=== PATIENT | female | born 1965 | race Caucasian/White ===

== ENCOUNTER 2017-03-14 15:19 | Emergency (ER) | payer OTHER ==
--- NOTE | 2017-03-14 18:11 | UC ---
Respiratory Complaint HPI - HPI Summary HPI Summary: 51 yo female with cough x 4 days has felt feverish and had chills hurts to cough no sob - History of Current Complaint Chief Complaint: UCGeneralIllness Stated Complaint: COUGH/CHEST CONGESTION Time Seen by Provider: 03/14/17 18:05 Hx Obtained From: Patient Hx Last Menstrual Period: Onset/Duration: Gradual Onset, Lasting Days Timing: Constant Severity Initially: Mild Severity Currently: Moderate Pain Intensity: 10 Pain Scale Used: 0-10 Numeric Character: Cough: Productive Aggravating Factors: Nothing Alleviating Factors: Nothing Associated Signs And Symptoms: Positive: Fever. Negative: Nasal Congestion, Hoarseness, Sinus Discomfort - Allergies/Home Medications Allergies/Adverse Reactions: Allergies Allergy/AdvReac Type Severity Reaction Status Date / Time Celecoxib [From Celebrex] Allergy Severe Rash Verified 03/14/17 16:31 Iodine Allergy Severe Rash And Verified 03/14/17 16:31 Itching Penicillins Allergy Severe Diarrhea Verified 03/14/17 16:31 Povidone Iodine Allergy Severe Itching Verified 03/14/17 16:31 [From Betadine] Tramadol [From Ultram] Allergy Severe Itching Verified 03/14/17 16:31 Adhesive Tape Allergy Rash And Verified 03/14/17 16:31 Itching Lisinopril Allergy Coughing Verified 03/14/17 16:33 Codeine AdvReac See Comment Verified 03/14/17 16:33 Morphine AdvReac Dizziness Verified 03/14/17 16:31 Prednisone AdvReac See Comment Verified 03/14/17 16:33 Home Medications: Home Medications Acetaminophen [Acetaminophen Extra Stren] 1,000 mg PO Q8H PRN 03/14/17 [History Confirmed 03/14/17] BuPROPion XL* [Bupropion XL*] 300 mg PO DAILY 03/14/17 [History Confirmed ] Bupropion HCl [Bupropion HCl Xl] 150 mg PO DAILY 03/14/17 [History Confirmed ] Ibuprofen [Ibuprofen 200] 400 mg PO Q6H PRN 03/14/17 [History Confirmed 03/14/17 ] PMH/Surg Hx/FS Hx/Imm Hx Previously Healthy: Yes - lupus Endocrine History: Dyslipidemia Cardiovascular History: Hypertension Respiratory History: Bronchitis Psychological History: Depression - Surgical History Surgical History: Yes Surgery Procedure, Year, and Place: [facility]. 1992 LEFT KNEE ARTHOSCOPY [facility]. 2011 LEFT BREAST BIOPSY W/ [facility]. 08/20/13 RIGHT WRIST TENDON [facility]. FATTY TISSUE REMOVED FROM UPPER RIGHT ARM - Social History Alcohol Use: None Alcohol Amount: Recovering alcoholic Substance Use Type: Prescribed Substance Use Comment - Amount & Last Used: hx prescribed drug, in outpatient treatment Smoking Status (MU): Current Every Day Smoker Type: Cigarettes Amount Used/How Often: 4-5 CIGS PER DAY Length of Time of Smoking/Using Tobacco: 3-4 YRS Have You Smoked in the Last Year: Yes When Did the Patient Quit Smoking/Using Tobacco: august 2014 Review of Systems Constitutional: Fever - gonzález, Chills, Fatigue Skin: Negative Eyes: Negative ENT: Negative Respiratory: Cough Cardiovascular: Chest Pain - with cough Gastrointestinal: Negative Genitourinary: Negative Motor: Negative Neurovascular: Negative Musculoskeletal: Edema Neurological: Negative Psychological: Negative Is Patient Immunocompromised?: No All Other Systems Reviewed And Are Negative: Yes Physical Exam Triage Information Reviewed: Yes Appearance: Well-Appearing, No Pain Distress, Well-Nourished Vital Signs: Initial Vital Signs Temp 97.9 F 03/14/17 16:20 Pulse 72 03/14/17 16:20 Resp 18 03/14/17 16:20 BP 136/84 03/14/17 16:20 Pulse Ox 96 03/14/17 16:20 Vital Signs Reviewed: Yes Eyes: Positive: Conjunctiva Clear ENT: Positive: Hearing grossly normal, TMs normal, Uvula midline. Negative: Pharyngeal erythema, Nasal congestion, Tonsillar swelling, Tonsillar exudate, Trismus, Muffled voice, Dental tenderness, Sinus tenderness Dental Exam: Normal Neck exam: Normal Neck: Positive: Supple, Nontender, No Lymphadenopathy Respiratory: Positive: Lungs clear, Normal breath sounds, No respiratory distress, No accessory muscle use Cardiovascular: Positive: No Murmur, Pulses Normal Musculoskeletal: Positive: ROM Intact, No Edema Neurological: Positive: Alert Psychological Exam: Normal Skin Exam: Normal UC Diagnostic Evaluation - Laboratory O2 Sat by Pulse Oximetry: 96 - normal/not hypoxic - Radiology Xray Interpretation: No Acute Changes Radiology Interpretation Completed By: ED Physician Respiratory Course/Dx - Differential Dx/Diagnosis Provider Diagnoses: acute bronchitis Discharge - Discharge Plan Condition: Stable Disposition: HOME Prescriptions: DOXYcycline CAP(*) [DOXYcycline 100MG CAP(*)] 100 mg PO BID #14 cap Patient Education Materials: Acute Bronchitis (ED) Referrals: JACQUELINE Roman [Primary Care Provider] - 4 Days Additional Instructions: rest fluids plain robitussin or mucinex recheck for new or worsening symptoms recheck in 4 days if not better
[2017-03-14 18:45] VITALS: BP 138/85
--- NOTE | 2017-03-14 19:41 | RAD ---
INDICATION: Fever and cough x4 days COMPARISON: None TECHNIQUE: PA and lateral views of the chest were obtained. FINDINGS: The heart and mediastinum are normal in size and contour. The lungs are grossly clear. There is no evidence of large pleural effusion. Visualized bones are normal for the patient's age. There is no radiographic evidence of free air beneath the diaphragm IMPRESSION: No radiographic evidence of acute cardiopulmonary disease.
== END 2017-03-14 18:47 | disposition home or self-care (01) ==
LOC: UCCORT 15:19
DX: J20.9 Acute bronchitis, unspecified (principal); Z87.891 Personal history of nicotine dependence; F10.21 Alcohol dependence, in remission
CPT/HCPCS: 71046; 99212; G0463

== ENCOUNTER 2018-04-06 20:42 | Emergency (ER) | payer MEDICARE, OTHER ==
--- OUTSIDE RECORDS SUMMARY | 2018-04-06 20:53 | XMS REPORT | Continuity of Care Document ---
:1965 External Reference #:[id number] Author Name Paris Aguilar Care Team Providers Name Role Phone Eddie Velarde M.D. Care Team Information Senior Energy Market Coordinator Unavailable Eddie Velarde M.D. Primary Care Physician Unavailable Payers Type Date Identification Numbers Payment Provider Subscriber Expires: Policy Number: [id number] [facility] Vikki Lucero 2018 Medicare PayID: [id number] [address] [address] [place] [address] Effective: 2018 Policy Number: [id number] [employer] Vikki Lucero PayID: [id number] [address] [place] [address] Advance Directives Description No Information Available Problems Date Description Provider Status Onset: 05/24/2017 Other fecal abnormalities Zhang Hobson MD Active Onset: 05/24/2017 Diverticular disease of colon Zhang Hobson MD Active Onset: 09/28/2013 Carpal tunnel syndrome Margaret Batista MD Active Onset: 09/28/2013 Pain in limb Margaret Batista MD Active Onset: 01/22/2013 Pain of breast Kulwant Jennings MD Active Onset: 01/22/2013 Breast signs and symptoms Kulwant Jennings MD Active Family History Date Family Member(s) Problem(s) Comments General Hypertension mother, dad, sister, brother General Fibromyalgia sister General Bipolar Disorder brother, sister General Anxiety mother General High Cholesterol brother General Non Contributory : (age 70 Father due to Unknown Years) Causes Father Hypertension : (age 70 Mother due to Unknown Years) Causes Mother Hypertension Mother Anxiety First Brother Hypertension First Brother High Cholesterol First Brother Bipolar Disorder First Sister Hypertension First Sister Cancer First Sister Fibromyalgia First Sister Bipolar Disorder Social History Type Date Description Comments Sex Unknown Marital Status Single Lives With Alone Home Environment Lives Alone Diet Patient follows no dietary restrictions Occupation Disabled 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 Work Status Not Currently Working Tobacco Use Start: Unknown Never Smoked Cigarettes Smokeless Tobacco Never Used Smokeless Tobacco ETOH Use Denies alcohol use recovering alcoholic Tobacco Use Start: Unknown Patient is a current smoker, smokes every day Recreational Drug Use Denies Drug Use Tobacco Use Start: Unknown Light tobacco smoker (10 or fewer cigarettes/day) Smoking Status Reviewed: 03/17/18 Light tobacco smoker (10 or fewer cigarettes/day) Allergies, Adverse Reactions, Alerts Date Description Reaction Status Severity Comments 01/09/2013 Penicillin Active 01/09/2013 Celebrex Active 01/09/2013 Morphine Active 05/14/2016 Betadine Active 05/14/2016 Adhesives Active 05/17/2016 Iodine Active 02/02/2018 Benlysta Active 02/02/2018 Prednisone Active 03/17/2018 Lisinopril Active Medications Medication Date Status Form Strength Qnty SIG Indications Ordering Provider Bisacodyl Ec 04/[address] 5mg 4tabs take 4 R19.5 Jazlyn tablets by , Zhang, mouth at MD 8pm day before procedure Citrate Of 04/19 Active Solution 1.745GM/3 296ml 1 bottle R19.5 Jazlyn 0ML at 1pm day , Zhang, before MD procedure Aspirin Active Tablets 81mg 90tab 1 po qd Unknown /0000 s Gabapentin Active Capsules 400mg 1 tab po Unknown /0000 tid Omeprazole Active Capsules DR 40mg 30cap 1 by mouth Unknown /0000 s every day Trazodone HCL Active Tablets 100mg 1 tablets Unknown /0000 by mouth as needed for sleep Duloxetine HCL Active Caps DR 30mg 1 cap po Unknown /0000 Part in morning Hydrochlorothiazi 00 Active Capsules 12.5mg 1 by mouth Unknown de every day Atorvastatin 00 Active Tablets 20mg 1 by mouth Unknown Calcium / every day Fluticasone Active Suspension 50mcg/Act 1 spray to Unknown each nare every day Acidophilus Active Capsules 1 by mouth Unknown /0000 daily x 10 days Buspirone HCL Active Tablets 15mg 1 tab by Unknown /0000 mouth in the morning and 1 tab at noon Bupropion HCL ER Active Tablets ER 150mg 1 by mouth Unknown (SR) / 12HR po qd Bupropion HCL ER Active Tablets ER 300mg 1 by mouth Unknown (XL) / 24HR every day Azathioprine Active Tablets 50mg 4 tabs by Unknown /0000 mouth once daily Metaxalone Active Tablets 800mg Unknown / Sumatriptan Active Tablets 25mg one by Unknown Succinate /0000 mouth at the first sign of headache, may repeat dose in 2 hours if needed. mdd [address] 60mg 1 by mouth Unknown / Part every day Buspirone HCL Active Tablets 30mg Pt takes Unknown 20 mg at bedtime Meloxicam Active Tablets 7.5mg Take One Unknown Tablet By Mouth Every Day Take With Food Lisinopril 03/17 Hx Tablets 2.5mg 90tab 1 by mouth Amara, /2019 s every day Shai Clement M.D. 03/17 Moviprep 04/19 Hx Solution 100gm 1unit as R19.5 Jazlyn /2017 Rec s Zhang fregoso MD Flexeril Hx Tablets 10mg 30tab 1 po bid Unknown / s - 02/02 Lisinopril/Hydroc Hx Tablets 10-12.5mg 30tab 1 po qd Unknown hlorothiazide / s Pravastatin Hx Tablets 10mg 30tab 1 po qd Unknown Sodium / s Ranitidine HCL Hx Capsules 150mg 60cap 1 po bid Unknown / s - 02/02 Clonidine HCL Hx Tablets 0.1mg 30tab 1 po bid Unknown / s - 09/28 Nasonex Hx Suspension 50mcg/Act 1 Unknown / intranasal - qd 09/28 Nucynta Hx Tablets 50mg Unknown /0000 - 02/02 Clindamycin HCL Hx Capsules 300mg 6caps 2 tab po 1 Unknown /0000 hr prior to procedure Trazamine Hx Misc 100mg Unknown /0000 - 09/28 Black Cohosh Hx Capsules Unknown /0000 Potassium Hx Tablets Unknown Gluconate /0000 Complete Hx 1 tab am Unknown Multivitamin /0000 - 02/02 Fluticasone Hx [place] Unknown Propionate /0000 - 09/28 Cephalexin Hx Tablets 500mg 20tab 2 po bid Unknown / s pc - 09/28 Losartan Hx Tablets 50-12.5mg 90tab 1 po qd Unknown Potassium/Hydroch /0000 s lorothiazide Potassium Hx Tablets 595mg Unknown Gluconate / Amrix Hx Caps ER 15mg Unknown / 24HR Diclofenac Sodium Hx Tablets DR 50mg Unknown DR / Tylenol PM Extra Hx Tablets 500-25mg Unknown Strength / Crestor Hx Tablets 20mg Unknown / Sertraline HCL Hx Tablets 50mg Unknown Propranolol HCL Hx Tablets 10mg 1 tab po Unknown / bid - 02/02 Tylenol Hx Capsules 325mg 2 tab by / mouth - three 02/02 times day as needed Ibuprofen Hx Capsules 200mg as needed - 02/02 Immunizations Description No Information Available Vital Signs Date Vital Result Comment 03/17/2018 1:12pm BP Systolic 130 mmHg BP Diastolic 86 mmHg Body Temperature 97.8 F Heart Rate 84 /min Respiratory Rate 18 /min Weight 225.12 lb O2 % BldC Oximetry 96 % Pain Level 10 groin and bladder pain 02/02/2018 3:14pm BP Systolic 146 mmHg BP Diastolic 93 mmHg Body Temperature 98.1 F Heart Rate 73 /min Respiratory Rate 16 /min Height 63.75 inches 5'3.75" Weight 230.00 lb BMI (Body Mass Index) 39.8 kg/m2 BSA (Body Surface Area) 2.07 m2 [place] body weight in kilograms 54 kg O2 % BldC Oximetry 94 % Pain Level 9 Right side of groin 05/24/2017 1:37pm BP Systolic Sitting Right Arm 144 mmHg BP Diastolic Sitting Right Arm 97 mmHg Heart Rate 69 /min Respiratory Rate 18 /min Height 63.75 inches 5'3.75" Weight 236.00 lb BMI (Body Mass Index) 40.8 kg/m2 BSA (Body Surface Area) 2.09 m2 [place] body weight in kilograms 54 kg 04/19/2017 2:04pm BP Systolic Sitting Left Arm 132 mmHg BP Diastolic Sitting Left Arm 84 mmHg Heart Rate 66 /min Respiratory Rate 16 /min Height 63.75 inches 5'3.75" Weight 242.00 lb BMI (Body Mass Index) 41.9 kg/m2 BSA (Body Surface Area) 2.11 m2 [place] body weight in kilograms 54 kg 05/14/2016 11:16am BP Systolic Sitting Left Arm 109 mmHg BP Diastolic Sitting Left Arm 77 mmHg Heart Rate 62 /min Height 63.75 inches 5'3.75" Weight 265.00 lb BMI (Body Mass Index) 45.8 kg/m2 BSA (Body Surface Area) 2.20 m2 [place] body weight in kilograms 54 kg 09/28/2013 10:10am BP Systolic Sitting Left Arm 134 mmHg BP Diastolic Sitting Left Arm 88 mmHg Height 64.5 inches 5'4.50" Weight 231.00 lb BMI (Body Mass Index) 39.0 kg/m2 BSA (Body Surface Area) 2.09 m2 01/22/2013 10:15am BP Systolic Sitting Left Arm 120 mmHg BP Diastolic Sitting Left Arm 68 mmHg Heart Rate 90 /min Height 64 inches 5'4" Weight 205.00 lb BMI (Body Mass Index) 35.2 kg/m2 BSA (Body Surface Area) 1.98 m2 Results Test Date Facility Test Result H/L Range Note Urine Culture 02/02/2018 [facility] Urine Culture URETHRAL IMAN [address] [place] [address] [phone] Quantity 10,000 - 50,000 <SEE NOTE> 2 Laboratory test finding 02/15/2015 [facility] CK 87 U/L 26-192 [address] [place] [address] [phone] Treponema Antibody Schuyler Nonreactive Nonreactive 3 Basic Metabolic Panel 02/15/2015 [facility] Glucose 96 mg/dL 74-106 [address] [place] [address] [phone] BUN 10 mg/dL 7-18 Creatinine 0.5 mg/dL Low 0.6-1.3 Glom Filtration Rate, Estimate >60 mL/min >60 If >60 mL/min >60 4 BUN/Creat 20.0 ratio Sodium 142 mmol/L 136-145 Potassium 3.2 mmol/L Low 3.5-5.1 Chloride 109 mmol/L High 98-107 Carbon Dioxide 26 mmol/L 21-32 Anion Gap 7 mEq/L Low 8-16 Calcium 8.0 mg/dL Low 8.5-10.1 Laboratory test finding 02/15/2015 [facility] HCG, Quant 2.0 mIU/mL 5 [address] [place] [address] [phone] C-Reactive Protein,Quant 254.0 mg/L High <3.0 CBC 02/15/2015 [facility] White Blood Count 14.3 K/uL High 3.1-10.7 [address] [place] [address] [phone] Red Blood Count 3.59 M/uL Low 3.90-5.40 Hemoglobin 10.5 gm/dL Low 11.6-15.8 Hematocrit 32.8 % Low 36.0-46.1 Mean Cell Volume 91.4 fl 80.9-99.0 Mean Corpuscular HGB 29.2 pg 25.9-32.7 Mean Corpuscular HGB Conc 32.0 g/dL 30.8-34.3 Platelet Count 257 K/uL 155-360 Red Cell Distri Width %CV 12.8 % 11.7-14.4 Mean Platelet Volume 10.1 fL 8.9-12.4 Laboratory test 02/14/2015 [facility] Dm MT. Negative Negative 6 finding [address] [facility] [place] [address] IgG [phone] Antibody Detection See Note 7 Drugs Of 02/14/2015 [facility] Amphetamines (Urine) Negative Abuse-Urine Screen [address] [facility] [address] [place], [place] [id number] [phone] Barbiturates (Urine) Negative Benzodiazepines (Urine) Negative Cannabinoids (Urine) Negative Cocaine Metabolite (Urine) Negative Methadone (Urine) Negative Opiates (Urine) POSITIVE High Urine Cutoffs * 8 CSF Cell Count/Diff 02/14/2015 [facility] Color COLORLESS [address] [place], [place] [id number] [phone] Appearance CLEAR CSF WBC 1 /mm3 0-5 CSF RBC 4 /mm3 High -0 CSF Polys 1 % 0-6 CSF Lymphs 92 % High 40-60 CSF Monos 7 % Low 15-45 CSF Culture With Gram Stain 02/14/2015 [facility] Gram Stain See Note 9 [address] [place] [address] [phone] CSF Culture See Note 10 Laboratory test 02/14/2015 [facility] CSF Total 25.4 mg/dL 15.0-45.[address] [place] [address] [phone] VDRL,CSF Non Reactive NonRea:<1:1 11 1 N39.3 2 10,000 - 50,000 CFU/mL 3 Please Note: A nonreactive test result does not exclude the possibility of exposure to, or infection with syphilis. T. pallidum antibodies may be undetectable in some stages of the infection and in some clinical conditions. 4 Note: Persistent reduction for 3 months or more in an eGFR <60 mL/min/1.73 m2 defines CKD. Patients with eGFR values >/=60 mL/min/1.73 m2 may also have CKD if evidence of persistent proteinuria is present. The original MDRD equation for estimated GFR is not valid for patients less than 18 years of age. Additional information may be found at www.kdoqi.org. 5 Approximate Gestational Age and Total BHCG Range: 0.2 - 1 Week........................5-50 mIU/mL 1 - 2 Weeks.....................50-500 mIU/mL 2 - 3 Weeks..................100-5,000 mIU/mL 3 - 4 Weeks.................500-10,000 mIU/mL 4 - 5 Weeks...............1,000-50,000 mIU/mL 5 - 6 Weeks.............10,000-100,000 mIU/mL 6 - 8 Weeks.............15,000-200,000 mIU/mL 2 - 3 Months............10,000-100,000 mIU/mL 6 Performed at: [address] [id number] [employer] Mechanic: Uli Lopez MD, Phone: [phone] 7 No reportable results 8 URINE SPECIMENS ARE SCREENED AT THE LISTED CUTOFFS DRUG CLASS INITIAL TEST LEVEL Amphetamines 1000 ng/mL Barbiturates 200 ng/mL Benzodiazepines 200 ng/mL Cannabinoids 50 ng/mL Cocaine Metabolite 300 ng/mL Methadone 300 ng/mL Opiates 300 ng/mL Any POSITIVE findings are UNCONFIRMED. Confirmatory testing is suggested if findings are unexpected. Please contact laboratory if confirmatory testing is desired. SPECIMENS ARE HELD FOR 72 HOURS. 9 GRAM STAIN ! NO ORGANISMS SEEN BY CYTOSPIN SMEAR ! FEW WHITE BLOOD CELLS 10 NO GROWTH: FINAL REPORT 11 Performed at: [address] [id number] [employer] Mechanic: Uli Lopez MD, Phone: [phone] Procedures Date Code Description Status 03/17/2018 46721 complex uroflowmetry electronic Completed 03/15/2018 57509 Endoscopic Injection Implant Material Urethra/Bladder Completed Neck 05/09/2017 63807 Colonoscopy With Biopsy Completed 05/14/2016 44778 Radiology, Ankle Complete Completed 05/14/2016 64836 Radiology, Ankle Complete Completed 02/14/2015 93716 Echocardiogram Complete Completed 01/15/2013 [id number] Mammogram Completed 12/03/2011 [id number] Mammogram Completed 08/10/2008 69362 Rep Complex Forehead,Cheeks,Chin,Mouth, Neck 1.1 To 2.5 Completed CM 08/10/2008 49915 Rep Complex Forehead,Cheeks,Chin,Mouth, Neck 1.1 To 2.5 Completed CM 06/29/2007 [id number] Mammogram Completed Encounters Type Date Location Provider Dx Diagnosis Office Visit 03/17/2018 Urology Kalyan Stiles, 1:30p PA Office Visit 02/02/2018 Urology Urbano Maloney, N39.3 Stress incontinence 3:00p M.D. (female) (male) N39.41 Urge incontinence Office Visit 05/24/2017 1:30p Zhang Nunn MD K57.30 Dvrtclos of lg int w/o perforation or abscess w/o bleeding R19.5 Other fecal abnormalities Office Visit 04/19/2017 MJ Hobson R19.5 Other fecal 1:45p MD Zhang abnormalities Office Visit 05/14/2016 Orthopaedic Alix Cunningham M25.572 Pain in left ankle 11:00a Office S., RPAC and joints of left foot S93.422A Sprain of deltoid ligament of left ankle, initial encounter Office Visit 02/13/2015 10:32a [facility] Bre, L03.319 Cellulitis of [facility] Melvin Bello trunk, unspecified Office Visit 09/28/2013 10:00a Orthopaedic Margaert Batista, 729.5 Pain In Limb Office 354.0 Carpal Tunnel Syndrome Office Visit 01/22/2013 10:00a Surgical Office Kulwant Jennings, 611.79 Breast Signs & MD Symptoms Other 611.71 Mastodynia Plan of Treatment Future Appointment(s):05/15/2018 10:15 am - Kalyan Stiles PA at [email or web address] 10:45 am - Urbano Maloney M.D. at Urology
--- OUTSIDE RECORDS SUMMARY | 2018-04-06 20:53 | XMS REPORT | Continuity of Care Document ---
:1965 External Reference #:[id number] Author Name Urbano Maloney M.D. Address [address] [facility] [address] [place] [address] Care Team Providers Name Role Phone Eddie Velarde M.D. 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 Primary Care Physician Unavailable Payers Type Date Identification Numbers Payment Provider Subscriber Expires: Policy Number: [id number] [facility] Vikki Lucero 2018 Medicare PayID: [id number] [address] [address] [place] [address] Effective: 2018 Policy Number: [id number] [employer] Vikki Lucero PayID: [id number] [address] [place] [address] Advance Directives Description No Information Available Problems Date Description Provider Status Onset: 03/30/2018 Female stress incontinence Urbano Maloney M.D. Active Onset: 05/24/2017 Other fecal abnormalities Zhang Hobson [...] (10 or fewer cigarettes/day) Smoking Status Reviewed: 03/29/18 Light tobacco smoker (10 or fewer cigarettes/day) [...] take 4 R19.5 Jazlyn tablets by , Zhang mouth at MD 8pm day before procedure Citrate Of 04/19 Active Solution 1.745GM/3 296ml 1 bottle R19.5 Jazlyn 0ML at 1pm day , Zhang, before MD procedure Aspirin Active Tablets 81mg 90tab 1 po qd Unknown / s Gabapentin 00 Active Capsules 400mg 1 tab po tid Omeprazole Active Capsules DR 40mg 30cap 1 by mouth s every day Trazodone HCL Active Tablets 100mg 1 tablets by mouth as needed for sleep Duloxetine HCL Active Caps DR 30mg 1 cap po Part in morning Hydrochlorothiazi Active Capsules 12.5mg 1 by mouth Unknown de /0000 every day Atorvastatin Active Tablets 20mg 1 by mouth Unknown Calcium /0000 every day Fluticasone Active Suspension 50mcg/Act 1 spray to Unknown Propionate 0000 each nare every day Acidophilus Active Capsules 1 by mouth Unknown /0000 daily x 10 days Buspirone HCL Active Tablets 15mg 1 tab by Unknown /0000 mouth in the morning and 1 tab at noon Bupropion HCL ER Active Tablets ER 150mg 1 by mouth Unknown (SR) / 12HR po qd Bupropion HCL ER Active Tablets ER 300mg 1 by mouth Unknown (XL) /0000 24HR every day Azathioprine Active Tablets 50mg 4 tabs by Unknown /0000 mouth once daily Metaxalone Active Tablets 800mg Unknown / Sumatriptan Active Tablets 25mg one by Unknown Succinate / mouth at the first sign of headache, may repeat dose in 2 hours if needed. mdd [address] 60mg 1 by mouth Unknown / Part every day Buspirone HCL Active Tablets 30mg Pt takes Unknown 20 mg at bedtime Meloxicam Active Tablets 7.5mg Take One Tablet By Mouth Every Day Take With Food Lisinopril 03/17 Hx Tablets 2.5mg 90tab 1 by mouth Amara, s every day Shai Clement M.D. 03/17 Moviprep 04/19 Hx Solution 100gm 1unit as R19.5 /2017 Rec s Zhang rfegoso MD Flexeril Hx Tablets 10mg 30tab 1 po bid Unknown / s - 02/02 Lisinopril/Hydroc Hx Tablets 10-12.5mg 30tab 1 po qd Unknown hlorothiazide s Pravastatin Hx Tablets 10mg 30tab 1 po qd Unknown Sodium s Ranitidine HCL Hx Capsules 150mg 60cap 1 po bid Unknown s - 02/02 Clonidine HCL Hx Tablets 0.1mg 30tab 1 po bid Unknown / s - 09/28 Nasonex Hx Suspension 50mcg/Act 1 Unknown / intranasal - qd 09/28 Nucynta Hx Tablets 50mg Unknown / - 02/02 Clindamycin HCL Hx Capsules 300mg 6caps 2 tab po 1 Unknown / hr prior to procedure Trazamine Hx Misc 100mg Unknown / - 09/28 Black Cohosh Hx Capsules Unknown /0000 Potassium Hx Tablets Unknown Gluconate /0000 Complete Hx 1 tab am Unknown Multivitamin / - 02/02 Fluticasone Hx [place] Unknown Propionate / - 09/28 Cephalexin Hx Tablets 500mg 20tab 2 po bid Unknown / s pc - 09/28 Losartan Hx Tablets 50-12.5mg 90tab 1 po qd Unknown Potassium/Hydroch / s lorothiazide Potassium Hx Tablets 595mg Unknown Gluconate Amrix Hx Caps ER 15mg Unknown 24HR Diclofenac Sodium Hx Tablets DR 50mg Unknown DR / Tylenol PM Extra Hx Tablets 500-25mg Unknown Strength /0000 Crestor Hx Tablets 20mg Unknown / Sertraline HCL Hx Tablets 50mg Unknown / Propranolol HCL Hx Tablets 10mg 1 tab po Unknown / bid - 02/02 Tylenol Hx Capsules 325mg 2 tab by Unknown / mouth - three 02/02 times per day as needed Ibuprofen Hx Capsules 200mg as needed / - 02/02 Immunizations Description No Information Available Vital Signs Date Vital Result Comment 03/30/2018 10:15am BP Systolic 147 mmHg BP Diastolic 88 mmHg Body Temperature 98.0 F Heart Rate 71 /min Respiratory Rate 16 /min O2 % BldC Oximetry 97 % Pain Level 10 left knee, lupus,fibromyalgia 03/17/2018 1:12pm BP Systolic 130 mmHg BP [...] kg/m2 BSA (Body Surface Area) 2.07 m2 [place] body weight in kilograms 54 kg O2 % BldC Oximetry 94 % Pain Level 9 Right side of groin 05/24/2017 1:37pm BP Systolic Sitting Right Arm 144 mmHg BP Diastolic Sitting Right Arm 97 mmHg Heart Rate 69 /min Respiratory Rate 18 /min Height 63.75 inches 5'3.75" Weight 236.00 lb BMI (Body Mass Index) 40.8 kg/m2 BSA (Body Surface Area) 2.09 m2 [place] body weight in kilograms 54 kg 04/19/2017 2:04pm BP Systolic Sitting Left Arm 132 mmHg BP Diastolic Sitting Left Arm 84 mmHg Heart Rate 66 /min Respiratory Rate 16 /min Height 63.75 inches 5'3.75" Weight 242.00 lb BMI (Body Mass Index) 41.9 kg/m2 BSA (Body Surface Area) 2.11 m2 [place] body weight in kilograms 54 kg 05/14/2016 11:16am BP Systolic Sitting Left Arm 109 mmHg BP Diastolic Sitting Left Arm 77 mmHg Heart Rate 62 /min Height 63.75 inches 5'3.75" Weight 265.00 lb BMI (Body Mass Index) 45.8 kg/m2 BSA (Body Surface Area) 2.20 m2 [place] body weight in kilograms 54 kg 09/28/2013 [...] Result H/L Range Note Urine Culture 02/02/2018 [facility] Urine Culture URETHRAL IMAN [address] [place] [address] [phone] Quantity 10,000 - 50,000 <SEE NOTE> 2 Laboratory test finding 02/15/2015 [facility] CK 87 U/L 26-192 [address] [place], [place] [address] [phone] Treponema Antibody [place] Nonreactive Nonreactive 3 Basic Metabolic Panel 02/15/2015 [facility] Glucose 96 mg/dL 74-106 [address] [place] [address] [phone] BUN 10 mg/dL 7-18 Creatinine 0.5 mg/dL Low 0.6-1.3 Glom Filtration Rate, Estimate >60 mL/min >60 If >60 mL/min >60 4 BUN/Creat 20.0 ratio Sodium 142 mmol/L 136-145 Potassium 3.2 mmol/L Low 3.5-5.1 Chloride 109 mmol/L High 98-107 Carbon Dioxide 26 mmol/L 21-32 Anion Gap 7 mEq/L Low 8-16 Calcium 8.0 mg/dL Low 8.5-10.1 Laboratory test finding 02/15/2015 [facility] HCG, Quant 2.0 mIU/mL 5 [address] [place], [place] [address] [phone] C-Reactive Protein,Quant 254.0 mg/L High <3.0 CBC 02/15/2015 [facility] White Blood Count 14.3 K/uL High 3.1-10.7 [address] [place], [place] [address] [phone] Red Blood Count 3.59 M/uL Low 3.90-5.40 Hemoglobin 10.5 gm/dL Low 11.6-15.8 Hematocrit 32.8 % Low 36.0-46.1 Mean Cell Volume 91.4 fl 80.9-99.0 Mean Corpuscular HGB 29.2 pg 25.9-32.7 Mean Corpuscular HGB Conc 32.0 g/dL 30.8-34.3 Platelet Count 257 K/uL 155-360 Red Cell Distri Width %CV 12.8 % 11.7-14.4 Mean Platelet Volume 10.1 fL 8.9-12.4 Laboratory test 02/14/2015 [facility] Dm MT. Negative Negative 6 finding 134 [facility] [place] [address] IgG [phone] Antibody Detection See Note 7 Drugs Of 02/14/2015 [facility] Amphetamines (Urine) Negative Abuse-Urine Screen [address] [facility] [address] [place] [address] [phone] Barbiturates (Urine) Negative Benzodiazepines (Urine) Negative Cannabinoids (Urine) Negative Cocaine Metabolite (Urine) Negative Methadone (Urine) Negative Opiates (Urine) POSITIVE High Urine Cutoffs * 8 CSF Cell Count/Diff 02/14/2015 [facility] Color COLORLESS [address] [place], [place] [address] [phone] Appearance CLEAR CSF WBC 1 /mm3 0-5 CSF RBC 4 /mm3 High -0 CSF Polys 1 % 0-6 CSF Lymphs 92 % High 40-60 CSF Monos 7 % Low 15-45 CSF Culture With Gram Stain 02/14/2015 [facility] Gram Stain See Note 9 [address] [place] [address] [phone] CSF Culture See Note 10 Laboratory test 02/14/2015 [facility] CSF Total 25.4 mg/dL 15.0-45.0 finding [address] [place] [address] [phone] VDRL,CSF Non Reactive NonRea:<1:1 11 1 N39.3 [...] - 3 Months............10,000-100,000 mIU/mL 6 Performed at: [address] [id number] Global Climate Change Researcher: Uli Lopez MD, Phone: [phone] No reportable results 8 URINE SPECIMENS [...] NO GROWTH: FINAL REPORT 11 Performed at: [address] [id number] Global Climate Change Researcher: Uli Lopez MD, Phone: [phone] Procedures Date Code Description Status 03/17/2018 72099 Measurement Post Voiding Residual Urine By Completed Ultrasound,Non-Imaging 03/17/2018 10804 complex uroflowmetry electronic Completed 03/15/2018 31319 Endoscopic Injection Implant Material Urethra/Bladder Completed Neck 05/09/2017 52815 Colonoscopy With Biopsy Completed 05/14/2016 96952 Radiology, Ankle Complete Completed 05/14/2016 13189 Radiology, Ankle Complete Completed 02/14/2015 84284 Echocardiogram Complete Completed 01/15/2013 [id number] Mammogram Completed 12/03/2011 73300120 Mammogram Completed 08/10/2008 97274 Rep Complex Forehead,Cheeks,Chin,Mouth, Neck 1.1 To 2.5 Completed CM 08/10/2008 44310 Rep Complex Forehead,Cheeks,Chin,Mouth, Neck 1.1 To 2.5 Completed CM 06/29/2007 [id number] Mammogram Completed Encounters Type Date Location Provider Dx Diagnosis Office Visit 03/17/2018 Urology Kalyan Stiles, N39.3 Stress incontinence 1:30p PA (female) (male) Office Visit 02/02/2018 Urology Urbano Maloney, N39.3 [...] ankle, initial encounter Office Visit 02/13/2015 10:32a [facility] Bre, L03.319 Cellulitis of [facility] Melvin Bello trunk, unspecified Office Visit 09/28/2013 10:00a Orthopaedic Margaret Batista, 729.5 Pain In Limb Office 354.0 Carpal Tunnel Syndrome Office Visit 01/22/2013 10:00a Surgical Office Kulwant Jennings, 611.79 Breast Signs & MD Symptoms Other 611.71 Mastodynia Plan of Treatment Future Appointment(s):07/04/2018 10:45 am - Urbano Maloney M.D. at [email or web address] 10:15 am - Kalyan Stiles, PA at Urology
--- OUTSIDE RECORDS SUMMARY | 2018-04-06 20:54 | XMS REPORT | Continuity of Care Document ---
:1965 External Reference #:[id number] Author Name Urbano Maloney M.D. Address [address] [facility] [address] [place] [address] Care Team Providers Name Role Phone Eddie Velarde M.D. 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 Primary Care Physician Unavailable Payers Type Date Identification Numbers Payment Provider Subscriber Expires: Policy Number: [id number] [facility] Vikki Lucero 2018 Medicare PayID: [id number] [address] [address] [place] [address] Effective: 2018 Policy Number: [id number] [employer] Vikki Lucero PayID: [id number] [address] [place] [address] Advance Directives Description No Information Available Problems [...] Tablets DR 5mg 4tabs take 4 R19.5 tablets by , Zhang, mouth at MD 8pm day before procedure Citrate Of 04/19 Active Solution 1.745GM/3 296ml 1 bottle R19.5 Jazlyn 0ML at 1pm day Zhang, before MD procedure Aspirin 00 Active Tablets 81mg 90tab 1 po qd Unknown /0000 s Gabapentin 00 Active Capsules 400mg 1 tab po Unknown /0000 tid Omeprazole [address] 40mg 30cap 1 by [...] Acidophilus Active Capsules 1 by mouth Unknown / daily x 10 days Buspirone HCL Active [...] Buspirone HCL Active Tablets 30mg Pt takes 20 mg at bedtime Meloxicam Active Tablets 7.5mg Take One Unknown Tablet By Mouth Every Day Take With Food Lisinopril 03/17 Hx Tablets 2.5mg 90tab 1 by mouth Amara, /2018 s every day Shai Clement M.D. 03/17 Moviprep 04/19 Hx Solution 100gm 1unit as R19.5 [facility] Rec s Zhang fregoso MD Flexeril Hx [...] - 09/28 Black Cohosh Hx Capsules Unknown / Potassium Hx Tablets Unknown Gluconate /0000 Complete Hx 1 tab am Unknown Multivitamin /0000 - 02/02 Fluticasone Hx [place] Unknown Propionate /0000 - 09/28 Cephalexin Hx Tablets 500mg 20tab 2 po bid Unknown s pc - 09/28 Losartan Hx Tablets 50-12.5mg 90tab 1 po qd Unknown Potassium/Hydroch / s lorothiazide Potassium Hx Tablets 595mg Unknown Gluconate Amrix Hx Caps ER 15mg 24HR Diclofenac Sodium Hx Tablets DR 50mg Unknown DR / Tylenol PM Extra Hx Tablets 500-25mg Unknown Strength / Crestor Hx Tablets 20mg Unknown Sertraline HCL Hx Tablets 50mg Unknown Propranolol HCL Hx Tablets 10mg 1 tab po Unknown / bid - 02/02 Tylenol Hx Capsules 325mg 2 tab by mouth - three 02/02 times day as [...] kg/m2 BSA (Body Surface Area) 2.07 m2 [place] body weight in kilograms 54 kg O2 % BldC Oximetry 94 % Pain Level 9 Right side of groin 05/24/2017 1:37pm BP Systolic Sitting Right Arm 144 mmHg BP Diastolic Sitting Right Arm 97 mmHg Heart Rate 69 /min Respiratory Rate 18 /min Height 63.75 inches 5'3.75" Weight 236.00 lb BMI (Body Mass Index) 40.8 kg/m2 BSA (Body Surface Area) 2.09 m2 [place] body weight in kilograms 54 kg 04/19/2017 2:04pm BP Systolic Sitting Left Arm 132 mmHg BP Diastolic Sitting Left Arm 84 mmHg Heart Rate 66 /min Respiratory Rate 16 /min Height 63.75 inches 5'3.75" Weight 242.00 lb BMI (Body Mass Index) 41.9 kg/m2 BSA (Body Surface Area) 2.11 m2 [place] body weight in kilograms 54 kg 05/14/2016 11:16am BP Systolic Sitting Left Arm 109 mmHg BP Diastolic Sitting Left Arm 77 mmHg Heart Rate 62 /min Height 63.75 inches 5'3.75" Weight 265.00 lb BMI (Body Mass Index) 45.8 kg/m2 BSA (Body Surface Area) 2.20 m2 [place] body weight in kilograms 54 kg 09/28/2013 [...] Result H/L Range Note Urine Culture 02/02/2018 [facility] Urine Culture URETHRAL IMAN 1 [address] [place] [address] [phone] Quantity 10,000 - 50,000 <SEE NOTE> 2 Laboratory test finding 02/15/2015 [facility] CK 87 U/L 26-192 [address] [place] [address] [phone] Treponema Antibody [place] Nonreactive Nonreactive 3 Basic Metabolic Panel 02/15/2015 [facility] Glucose 96 mg/dL 74-106 [address] [place] [address] [phone] BUN 10 mg/dL 7-18 Creatinine 0.5 mg/dL Low 0.6-1.3 Glom Filtration Rate, Estimate >60 mL/min >60 If >60 mL/min >60 4 BUN/Creat 20.0 ratio Sodium 142 mmol/L 136-145 Potassium 3.2 mmol/L Low 3.5-5.1 Chloride 109 mmol/L High 98-107 Carbon Dioxide 26 mmol/L 21-32 Anion Gap 7 mEq/L Low 8-16 Calcium 8.0 mg/dL Low 8.5-10.1 Laboratory test finding 02/15/2015 [facility] HCG, Quant 2.0 mIU/mL 5 [address] [place] [address] [phone] C-Reactive Protein,Quant 254.0 mg/L High <3.0 CBC 02/15/2015 [facility] White Blood Count 14.3 K/uL High 3.1-10.7 [address] [place], [place] [id number] [phone] Red Blood Count 3.59 M/uL Low 3.90-5.40 Hemoglobin 10.5 gm/dL Low 11.6-15.8 Hematocrit 32.8 % Low 36.0-46.1 Mean Cell Volume 91.4 fl 80.9-99.0 Mean Corpuscular HGB 29.2 pg 25.9-32.7 Mean Corpuscular HGB Conc 32.0 g/dL 30.8-34.3 Platelet Count 257 K/uL 155-360 Red Cell Distri Width %CV 12.8 % 11.7-14.4 Mean Platelet Volume 10.1 fL 8.9-12.4 Laboratory test 02/14/2015 [facility] Dm MT. Negative Negative 6 finding 134 [facility] [place] [address] IgG [phone] Antibody Detection See Note 7 Drugs Of 02/14/2015 [facility] Amphetamines (Urine) Negative Abuse-Urine Screen [address] [facility] 7 [place], [place] [address] [phone] Barbiturates (Urine) Negative Benzodiazepines (Urine) Negative Cannabinoids (Urine) Negative Cocaine Metabolite (Urine) Negative Methadone (Urine) Negative Opiates (Urine) POSITIVE High Urine Cutoffs * 8 CSF Cell Count/Diff 02/14/2015 [facility] Color COLORLESS [address] [place] [address] [phone] Appearance CLEAR CSF WBC 1 /mm3 0-5 CSF RBC 4 /mm3 High -0 CSF Polys 1 % 0-6 CSF Lymphs 92 % High 40-60 CSF Monos 7 % Low 15-45 CSF Culture With Gram Stain 02/14/2015 [facility] Gram Stain See Note 9 [address] [place] [address] [phone] CSF Culture See Note 10 Laboratory test 02/14/2015 [facility] CSF Total 25.4 mg/dL 15.0-45.0 finding 134 [facility] [place] [address] [phone] VDRL,CSF Non Reactive NonRea:<1:1 11 1 N39.3 [...] - 3 Months............10,000-100,000 mIU/mL 6 Performed at: [address] [id number] Oven Loader: Uli Lopez MD, Phone: [phone] No reportable results 8 URINE SPECIMENS [...] NO GROWTH: FINAL REPORT 11 Performed at: [address] [id number] Oven Loader: Uli Lopez MD, Phone: [phone] Procedures Date Code Description Status 03/17/2018 72156 complex uroflowmetry electronic Completed 05/09/2017 24821 Colonoscopy With Biopsy Completed 05/14/2016 68223 Radiology, Ankle Complete Completed 05/14/2016 48141 Radiology, Ankle Complete Completed 02/14/2015 67331 Echocardiogram Complete Completed 01/15/2013 [id number] Mammogram Completed 12/03/2011 [id number] Mammogram Completed 08/10/2008 60192 Rep Complex Forehead,Cheeks,Chin,Mouth, Neck 1.1 To 2.5 Completed CM 08/10/2008 97278 Rep Complex Forehead,Cheeks,Chin,Mouth, Neck 1.1 To 2.5 Completed CM 06/29/2007 [id number] Mammogram Completed Encounters Type Date Location Provider [...] ankle, initial encounter Office Visit 02/13/2015 10:32a [facility], L03.319 Cellulitis of [facility] Melvin Bello trunk, unspecified Office Visit 09/28/2013 10:00a Orthopaedic Margaret Batista, 729.5 Pain In Limb Office 354.0 Carpal Tunnel Syndrome Office Visit 01/22/2013 10:00a Surgical Office Kulwant Jennings, 611.79 Breast Signs & MD Symptoms Other 611.71 Mastodynia Plan of Treatment Future Appointment(s):05/15/2018 10:15 am - Kalyan Stiles PA at [email or web address] 10:45 am - Urbano Maloney M.D. at Urology
[2018-04-06 21:14] VITALS: BP 133/72
--- NOTE | 2018-04-06 21:31 | UC ---
Hand/Wrist HPI - HPI Summary HPI Summary: 52 yo female punched a wall a few days ago right handed c/o hand pain /edema and tingling denies other injury - History Of Current Complaint Chief Complaint: UCUpperExtremity Stated Complaint: RIGHT HAND INJURY Time Seen by Provider: 04/06/18 21:22 Hx Obtained From: Patient Hx Last Menstrual Period: none Pain Intensity: 10 Pain Scale Used: 0-10 Numeric Character Of Pain: Aching, Throbbing Aggravating Factor(s): Movement Alleviating Factor(s): Nothing Associated Signs And Symptoms: Positive: Swelling, Bruising Hands: 1 - tender /swollen - Allergies/Home Medications Allergies/Adverse Reactions: Allergies Allergy/AdvReac Type Severity Reaction Status Date / Time Adhesive Tape Allergy Rash And Verified 02/27/18 12:59 Itching belimumab [From Benlysta] Allergy Difficulty Verified 04/06/18 21:01 Breathing celecoxib [From Celebrex] Allergy Rash Verified 02/27/18 12:59 codeine Allergy JITTERY, Verified 02/27/18 12:59 INSOMNIA iodine Allergy Rash And Verified 02/27/18 12:59 Itching lisinopril Allergy Coughing Verified 02/27/18 12:59 morphine Allergy Dizziness Verified 02/27/18 12:59 Penicillins Allergy Diarrhea Verified 02/27/18 12:59 prednisone Allergy ANGER Verified 02/27/18 12:59 ISSUES tramadol AdvReac Itching Verified 02/27/18 12:59 narcotics Allergy See Comment Uncoded 04/06/18 21:01 Home Medications: Home Medications Albuterol HFA INHALER* [Ventolin HFA Inhaler*] 2 puff INH Q4H PRN 04/06/18 [ History Confirmed 04/06/18] Benzonatate CAP* [Tessalon 100 MG CAP*] 100 mg PO TID PRN 04/06/18 [History Confirmed 04/06/18] PMH/Surg Hx/FS Hx/Imm Hx Previously Healthy: Yes - Surgical History Surgical History: Yes Surgery Procedure, Year, and Place: YOUNG [facility]. 1992 [place] [facility] 2011 LEFT BREAST BIOPSY W/ [facility]. 08/20/13 RIGHT WRIST TENDON [facility]. FATTY TISSUE REMOVED FROM UPPER RIGHT ARM - Family History Known Family History: Positive: Hypertension - Social History Alcohol Use: None Alcohol Amount: Recovering alcoholic Substance Use Type: None Substance Use Comment - Amount & Last Used: hx prescribed drug, in outpatient treatment Smoking Status (MU): Current Every Day Smoker Type: Cigarettes Amount Used/How Often: 1/2 PPD Length of Time of Smoking/Using Tobacco: 3-4 YRS Have You Smoked in the Last Year: Yes When Did the Patient Quit Smoking/Using Tobacco: august 2014 Household Exposure Type: Cigarettes Review of Systems All Other Systems Reviewed And Are Negative: Yes Constitutional: Positive: Negative Skin: Positive: Bruising Eyes: Positive: Negative ENT: Positive: Negative Respiratory: Positive: Negative Cardiovascular: Positive: Negative Gastrointestinal: Positive: Negative Genitourinary: Positive: Negative Motor: Positive: Negative Neurovascular: Positive: Negative Musculoskeletal: Positive: Arthralgia Neurological: Positive: Negative Psychological: Positive: Negative Physical Exam Triage Information Reviewed: Yes Appearance: Well-Appearing, No Pain Distress, Well-Nourished Vital Signs: Initial Vital Signs Temp 98.6 F 04/06/18 21:07 Pulse 88 04/06/18 21:07 Resp 16 04/06/18 21:07 BP 133/72 04/06/18 21:07 Pulse Ox 96 04/06/18 21:07 Vital Signs Reviewed: Yes Eyes: Positive: Conjunctiva Clear ENT: Positive: Hearing grossly normal. Negative: Nasal congestion, Nasal drainage, Trismus, Muffled voice Neck: Positive: Supple, Nontender Respiratory: Positive: Lungs clear, Normal breath sounds, No respiratory distress, No accessory muscle use Cardiovascular: Positive: RRR, No Murmur Musculoskeletal: Positive: Other: - see image Neurological Exam: Normal Neurological: Positive: Alert Psychological Exam: Normal Diagnostics - Radiology No standard instances Radiology Interpretation Completed By: ED Physician Summary of Radiographic Findings: no acute fx Hand/Wrist Course/Dx - Differential Dx/Diagnosis Provider Diagnosis: Contusion of right hand Discharge - Sign-Out/Discharge Documenting (check all that apply): Patient Departure All imaging exams completed and their final reports reviewed: No - Discharge Plan Condition: Stable Disposition: HOME Patient Education Materials: Contusion in Adults (ED), R.I.C.E. Treatment (ED) Referrals: Eddie Velarde MD [Primary Care Provider] - Additional Instructions: no fracture noted offical XR reading pending see you MD in 1-2 weeks if not completely better - Billing Disposition and Condition Condition: STABLE Disposition: Home
--- NOTE | 2018-04-07 12:36 | ED ---
Progress - Progress Note Progress Note: XRAY read by rad. SHARMA no fx. Course/Dx - Diagnoses Provider Diagnoses: Contusion of right hand Discharge - Sign-Out/Discharge Documenting (check all that apply): Patient Departure All imaging exams completed and their final reports reviewed: Yes - Discharge Plan Condition: Stable Disposition: HOME Patient Education Materials: Contusion in Adults (ED), R.I.C.E. Treatment (ED) Referrals: Eddie Velarde MD [Primary Care Provider] - Additional Instructions: no fracture noted offical XR reading pending see you MD in 1-2 weeks if not completely better - Billing Disposition and Condition Condition: STABLE Disposition: Home
== END 2018-04-06 21:55 | disposition home or self-care (01) ==
LOC: UCCORT 20:42
DX: S60.221A Contusion of right hand, initial encounter (principal); F17.210 Nicotine dependence, cigarettes, uncomplicated; Z91.09 Other allergy status, other than to drugs and biological substances; Z88.0 Allergy status to penicillin; Z88.1 Allergy status to other antibiotic agents; Z88.5 Allergy status to narcotic agent; Z88.8 Allergy status to other drugs, medicaments and biological substances; W22.01XA Walked into wall, initial encounter; Y92.9 Unspecified place or not applicable
CPT/HCPCS: 99213; G0463

== ENCOUNTER 2018-09-07 13:34 | Emergency (ER) | payer MEDICARE, OTHER ==
[2018-09-07 13:54] VITALS: BP 116/66
--- NOTE | 2018-09-07 14:46 | UC ---
Eye Complaint HPI - HPI Summary HPI Summary: Pt presents with c/o sudden onset of left eye redness, mild swelling and discharge. - History of Current Complaint Chief Complaint: UCEye Stated Complaint: LEFT EYE COMPLAINT Hx Obtained From: Patient Hx Last Menstrual Period: none ?: No Onset/Duration: Sudden Onset Timing: Constant Severity Initially: Mild Severity Currently: Mild Pain Intensity: 7 Aggravating Factor(s): Nothing Alleviating Factor(s): Nothing Associated Signs And Symptoms: Positive: Drainage (Purulent), Swelling - Risk Factors Penetrating Injury Risk Factor: Negative Globe Rupture Risk Factors: Negative Acute Glaucoma Risk Factors: Negative Optic Artery Occlusion Risk Factors: Negative - Allergies/Home Medications Allergies/Adverse Reactions: Allergies Allergy/AdvReac Type Severity Reaction Status Date / Time Adhesive Tape Allergy Rash And Verified 06/22/18 14:11 Itching belimumab [From Benlysta] Allergy Difficulty Verified 06/22/18 14:11 Breathing celecoxib [From Celebrex] Allergy Rash Verified 06/22/18 14:11 codeine Allergy JITTERY, Verified 06/22/18 14:11 INSOMNIA iodine Allergy Rash And Verified 06/22/18 14:11 Itching lisinopril Allergy Coughing Verified 06/22/18 14:11 morphine Allergy Dizziness Verified 06/22/18 14:11 Penicillins Allergy Diarrhea Verified 06/22/18 14:11 prednisone Allergy ANGER Verified 06/22/18 14:11 ISSUES tramadol AdvReac Itching Verified 06/22/18 14:11 narcotics Allergy See Comment Uncoded 04/06/18 21:01 opiods AdvReac See Comment Uncoded 09/07/18 13:55 PMH/Surg Hx/FS Hx/Imm Hx Previously Healthy: Yes - Surgical History Surgical History: Yes Surgery Procedure, Year, and Place: YOUNG [facility]ILD [facility]. 1992 LEFT KNEE ARTHOSCOPY [facility]. 2011 LEFT BREAST BIOPSY W/ [facility]. 08/20/13 RIGHT WRIST TENDON [facility]. FATTY TISSUE REMOVED FROM UPPER RIGHT ARM - Family History Known Family History: Positive: Hypertension - Social History Occupation: Works From/At Home Lives: With Family Alcohol Use: None Alcohol Amount: Recovering alcoholic Substance Use Type: Excessive Caffeine Substance Use Comment - Amount & Last Used: hx prescribed drug, in outpatient treatment Smoking Status (MU): Current Every Day Smoker Type: Cigarettes Amount Used/How Often: 1/2ppd Length of Time of Smoking/Using Tobacco: 3-4 YRS Have You Smoked in the Last Year: Yes When Did the Patient Quit Smoking/Using Tobacco: august 2014 Household Exposure Type: Cigarettes Review of Systems All Other Systems Reviewed And Are Negative: Yes Constitutional: Positive: Negative Skin: Positive: Negative Eyes: Positive: Drainage - left, Eye Redness - left ENT: Positive: Negative Respiratory: Positive: Negative Cardiovascular: Positive: Negative Gastrointestinal: Positive: Negative Genitourinary: Positive: Negative Motor: Positive: Negative Neurovascular: Positive: Negative Musculoskeletal: Positive: Negative Neurological: Positive: Negative Psychological: Positive: Negative Is Patient Immunocompromised?: No Physical Exam Triage Information Reviewed: Yes Appearance: Well-Appearing Vital Signs: Initial Vital Signs Temp 97.8 F 09/07/18 13:47 Pulse 62 09/07/18 13:47 Resp 18 09/07/18 13:47 BP 116/66 09/07/18 13:47 Pulse Ox 100 09/07/18 13:47 Vital Signs Reviewed: Yes Eye Exam: Other Eyes: Positive: Conjunctiva Inflamed - left, Discharge - left ENT Exam: Normal Dental Exam: Normal Neck exam: Normal Respiratory: Positive: No respiratory distress Musculoskeletal Exam: Normal Neurological Exam: Normal Psychological Exam: Normal Skin Exam: Normal Eye Complaint Course/Dx - Differential Dx/Diagnosis Differential Diagnosis/HQI/PQRI: Conjunctivitis Provider Diagnosis: Conjunctivitis Discharge - Sign-Out/Discharge Documenting (check all that apply): Patient Departure All imaging exams completed and their final reports reviewed: No Studies - Discharge Plan Condition: Stable Disposition: HOME Prescriptions: Polymyx/Trimethoprim OPTH* [Polytrim OPHTH*] 2 drop BOTH EYES Q6H 7 Days #1 btl Patient Education Materials: Conjunctivitis (ED) Referrals: Eddie Velarde MD [Primary Care Provider] - If Needed Additional Instructions: Please follow up with your PCP and eye care provider as needed. - Billing Disposition and Condition Condition: STABLE Disposition: Home
== END 2018-09-07 14:55 | disposition home or self-care (01) ==
LOC: UCCORT 13:34
DX: H10.9 Unspecified conjunctivitis (principal); F17.210 Nicotine dependence, cigarettes, uncomplicated
CPT/HCPCS: 99212; G0463

== ENCOUNTER 2018-09-12 13:31 | Emergency (ER) | payer MEDICARE ==
--- NOTE | 2018-09-12 14:07 | UC ---
Lower Extremity/Ankle HPI - HPI Summary HPI Summary: 53 y/o female presents to the urgent care c/o RT ankle pain s/p fall the stairs yesterday. Pt reports she twisted he RT ankle, but she also has RT hip pain and RT side lower back pain after the fall. Pt states PMHX of Complex regional pain syndrome, fibromyalgia and she is usually w/ pain everyday. Pt takes Gabapentin PO and Metaxalone PO for her pain. Pain now is 9/10 associated w/ RT ankle swelling and a bruise. Pt denies any numbness or tingling sensation over the RT extremity, knee pain, urinary symptoms, saddle anesthesia, urinary of fcal incontinence, fever, calf pain, SOB, chest pain, abdominal pain, N/V/d. She also wants her tattoo on her RT wrist checked. - History of Current Complaint Stated Complaint: S/P FALL-RT ANKLE INJURY Time Seen by Provider: 09/12/18 14:05 Hx Obtained From: Patient Hx Last Menstrual Period: none ?: No - menopausal Onset/Duration: Sudden Onset, Lasting Days - 1 day, Still Present, Worse Since - this morning Severity Initially: Severe Severity Currently: Moderate Pain Intensity: 9 Pain Scale Used: 0-10 Numeric Aggravating Factor(s): Standing, Ambulation Alleviating Factor(s): Rest, Elevation, OTC Meds Able to Bear Weight: Yes - Risk Factors Gout Risk Factors: Negative DVT Risk Factors: Negative Septic Arthritis Risk Factor: Negative - Allergies/Home Medications Allergies/Adverse Reactions: Allergies Allergy/AdvReac Type Severity Reaction Status Date / Time Opioids - Morphine Analogues Allergy Severe extreme Verified 09/12/18 13:59 disorientation, agressive Adhesive Tape Allergy Rash And Verified 09/12/18 13:59 Itching belimumab [From Benlysta] Allergy Difficulty Verified 09/12/18 13:59 Breathing celecoxib [From Celebrex] Allergy Rash Verified 09/12/18 13:59 codeine Allergy JITTERY, Verified 09/12/18 13:59 INSOMNIA iodine Allergy Rash And Verified 09/12/18 13:59 Itching lisinopril Allergy Coughing Verified 09/12/18 13:59 morphine Allergy Dizziness Verified 09/12/18 13:59 Penicillins Allergy Diarrhea Verified 09/12/18 13:59 prednisone Allergy ANGER Verified 09/12/18 13:59 ISSUES tramadol AdvReac Itching Verified 09/12/18 13:59 narcotics Allergy See Comment Uncoded 09/12/18 13:59 opiods AdvReac See Comment Uncoded 09/12/18 13:59 PMH/Surg Hx/FS Hx/Imm Hx Previously Healthy: Yes Endocrine History: Dyslipidemia Cardiovascular History: Hypertension Respiratory History: Asthma Other Neurological History: Complex REfional pain syndrome, and Fibromyalgia Psychological History: Anxiety, Depression - Surgical History Surgical History: Yes Surgery Procedure, Year, and Place: [facility]NG [facility]. 1992 LEFT KNEE ARTHOSCOPY [facility]. 2011 LEFT BREAST BIOPSY W/ [facility]. 08/20/13 RIGHT WRIST TENDON [facility]. FATTY TISSUE REMOVED FROM UPPER RIGHT ARM - Family History Known Family History: Positive: Hypertension - Social History Occupation: Disabled Lives: With Family Alcohol Use: None Alcohol Amount: Recovering alcoholic Substance Use Type: Excessive Caffeine Substance Use Comment - Amount & Last Used: hx prescribed drug, in outpatient treatment Smoking Status (MU): Current Every Day Smoker Type: Cigarettes Amount Used/How Often: 1/2ppd Length of Time of Smoking/Using Tobacco: 3-4 YRS Have You Smoked in the Last Year: Yes When Did the Patient Quit Smoking/Using Tobacco: august 2014 Household Exposure Type: Cigarettes Review of Systems All Other Systems Reviewed And Are Negative: Yes Constitutional: Positive: Negative Skin: Positive: Negative Eyes: Positive: Negative ENT: Positive: Negative Respiratory: Positive: Negative Cardiovascular: Positive: Negative Gastrointestinal: Positive: Negative Genitourinary: Positive: Negative Motor: Positive: Negative Neurovascular: Positive: Negative Musculoskeletal: Positive: Decreased ROM - RT ankle, Other: - RT ankle pain, RT hip pain and lower back pain s/p fall yesterday Neurological: Positive: Negative Psychological: Positive: Negative Is Patient Immunocompromised?: No Physical Exam - Summary Physical Exam Summary: Vital Signs Reviewed: Yes General: well developed, well nourished obese female, sitting in the examining table w/o any apparent distress Eyes: Positive: Conjunctiva Clear - PERRLA, EOMI, ENT: Positive: Normal ENT inspection, Hearing grossly normal, Pharynx normal, TMs normal Neck: Positive: Supple, Nontender, No Lymphadenopathy Respiratory: Positive: Chest non-tender, Lungs clear, Normal breath sounds, No respiratory distress Cardiovascular: Positive: RRR, No Murmur, Pulses Normal, Brisk Capillary Refill Abdomen Description: Positive: Nontender, No Organomegaly, Soft. Negative: CVA Tenderness (R), CVA Tenderness (L) Bowel Sounds: Positive: Present BACK: Pt is able to bear weight and ambulate w/ limping. Pt able to bear weight. No signs of trauma, No masses palpated. Point tenderness at the level of L5-S1 and Mild RT side paraspinal muscle spasm, No CVAT, no flank ecchymosis . No sacroiliac notch tenderness, No saddle anesthesia.ROM: limited due to pain , Straight Leg Raise: negative. Patellar reflexes: brisk, symmetric Muscle strength lower extremities. Dorsiflexion/ plantar flexion of ankles. Heel/ toe walk. Lower extremities: Femoral, popliteal, posterior tibial, and dorsalis pedis pulses WNL. Pt refuse rectal exam Neurological: Positive: Alert, Muscle Tone Normal The R ankle is without obvious asymmetry or deformity when compared to the L ankle. Decreased ROM due to pain. Moderate swelling at the lateral malleolus, with tenderness to palpation. No ecchymosis or bruising observed. NO tenderness to palpation over the medial malleolus , no swelling observed. Talar tilt test is negative for ligament laxity to valgus or varus stress. Negative anterior drawer. Peroneal nerve is intact with strong eversion and plantar flexion. Positive sensation over the Rt foot and Rt ankle, positive pulses, capillary refill intact Neurological Exam: Normal Psychological Exam: Normal Skin: Positive: ventral side of the RT wrist w/ a flower tattoo erythematous patch w/ indistinct borders, warm and tender to palpation, no drainage observed. pulses WNL, capillary refill brisk, sensation WNL. Triage Information Reviewed: Yes Lower Extremity Course/Dx - Course Course Of Treatment: 53 y/o female presents to the urgent care c/o RT ankle pain s/p fall the stairs yesterday. Pt reports she twisted he RT ankle, but she also has RT hip pain and RT side lower back pain after the fall. Pt states PMHX of Complex regional pain syndrome, fibromyalgia and she is usually w/ pain everyday. Pt takes Gabapentin PO and Metaxalone PO for her pain. Pain now is 9/10 associated w/ RT ankle swelling and a bruise. Pt denies any numbness or tingling sensation over the RT extremity, knee pain, urinary symptoms, saddle anesthesia, urinary of fecal incontinence, fever, calf pain, SOB, chest pain, abdominal pain, N/V/d. She also wants her tattoo on her RT wrist checked. Hx obtained. Pt given Tylenol PO to alleviate symptoms. Pt tolerated well medication. Rt ankle X-ray ordered, Impression: Soft tissue swelling, no acute fracture. Lower back and RT hip X-ray ordered: Impression: no acute osseous injury, negative for fracture as per radiologist. Pt most likely with a RT ankle Sprain adn cellulitis around tatoo on the RT wrist. Pt RT ankle immobilized with a CAM matson. Pt PCN allergic. Pt Rx Doxycycline PO, Bacitracin oint and Ibuprofen PO to alleviate symptoms. Also to continue taking her pain medications for fibromyalgia and RPS Pt advised RICE, take Ibuprofen PO for pain and to f/u with PCP on orthopedic Dr Obrien in 3 days if not improvement of symptoms for further treatment. Pt's BP is elevated today advised to decrease salt in diet, monitor BP and f/u with PCP for further management. D/c instructions explained. Pt understood and agreed and left the clinic ambulating w/o any difficulty. - Differential Dx/Diagnosis Differential Diagnosis/HQI/PQRI: Contusion, Dislocation, Fracture (Closed), Sprain, Strain, Tendonitis Provider Diagnosis: Right ankle sprain, Lower back pain, Right hip pain, Cellulitis of right wrist Discharge - Sign-Out/Discharge Documenting (check all that apply): Patient Departure - D/C home All imaging exams completed and their final reports reviewed: Yes - Discharge Plan Condition: Stable Disposition: HOME Prescriptions: Bacitracin OINTMENT* 1 applic TOPICAL BID #1 tube DOXYcycline CAP(*) [DOXYcycline 100MG CAP(*)] 100 mg PO DAILY #14 cap Ibuprofen TAB* [Motrin TAB* 600 MG] 600 mg PO Q6H PRN #30 tab PRN Reason: Pain Patient Education Materials: Ankle Sprain (ED), Cellulitis (ED) Referrals: Eddie Velarde MD [Primary Care Provider] - 3 Days Beny Obrien MD [Medical Doctor] - 1 Week Additional Instructions: 1-Please take Ibuprofen PO q6-8hrs prn after meals as directed to alleviate pain and swelling. 2-Please apply ice, keep your ankle immobilized with the CAM boot. Avoid standing fo long periods of time. Elevate your ankle to decrease swelling. 3-Please f/u with Orthopedic DR Knox or your PCP in 1 week is not improvement of symptoms for further evaluation and treatment. 4-Please take Doxycycline PO full course of Antibiotic to alleviate cellulitis on your RT wrist 5- If redness and swelling doubles in size beyond what was demarcated after 48 hrs of taking antibiotic please return to the urgent care or your PCP for further management 6- Avoid too much flexion of your Rt wrist to decrease swelling. Please F/u with your PCP in 3 days if not improvement for further evaluation and treatment. 7- Your BP is elevated today. please decrease salt in your diet, monitor BP and if it continues to be elevated please f/u with your PCP for further management. - Billing Disposition and Condition Condition: STABLE Disposition: Home
[2018-09-12 14:14] VITALS: BP 132/90
[2018-09-12] MEDS ORDERED: Acetaminophen TAB* 325 MG PO ONE (14:23)
== END 2018-09-12 15:43 | disposition home or self-care (01) ==
LOC: UCCORT 13:31
DX: S93.401A Sprain of unspecified ligament of right ankle, initial encounter (principal); M25.551 Pain in right hip; M54.5 Low back pain; W10.9XXA Fall (on) (from) unspecified stairs and steps, initial encounter; L03.113 Cellulitis of right upper limb; F17.210 Nicotine dependence, cigarettes, uncomplicated; I10 Essential (primary) hypertension
CPT/HCPCS: 72110; 99212; A9270-GY; G0463

== ENCOUNTER 2018-09-28 10:51 | Emergency (ER) | payer MEDICARE ==
[2018-09-28 11:20] VITALS: BP 128/76
--- NOTE | 2018-09-28 11:40 | UC ---
Respiratory Complaint HPI - HPI Summary HPI Summary: 53-year-old female presents with 10-14 day history of nasal congestion, sinus pressure, sore throat, bilateral ear fullness, dry nonproductive cough, chest tightness, and wheezing. States symptoms have progressively worsened over the last 3-4 days. Has history of reactive airway disease with upper respiratory infections in the past. States has been using her albuterol inhaler however thinks that it may be . Denies fever, chills, dysphagia, palpitations, diaphoresis, abdominal pain, nausea, vomiting, or diarrhea. - History of Current Complaint Chief Complaint: UCRespiratory Stated Complaint: COUGH,CHEST CONGESTION Time Seen by Provider: 09/28/18 11:28 Hx Obtained From: Patient Hx Last Menstrual Period: none Pain Intensity: 8 - Allergies/Home Medications Allergies/Adverse Reactions: Allergies Allergy/AdvReac Type Severity Reaction Status Date / Time Opioids - Morphine Analogues Allergy Severe extreme Verified 09/12/18 13:59 disorientation, agressive Adhesive Tape Allergy Rash And Verified 09/12/18 13:59 Itching belimumab [From Benlysta] Allergy Difficulty Verified 09/12/18 13:59 Breathing celecoxib [From Celebrex] Allergy Rash Verified 09/12/18 13:59 codeine Allergy JITTERY, Verified 09/12/18 13:59 INSOMNIA iodine Allergy Rash And Verified 09/12/18 13:59 Itching lisinopril Allergy Coughing Verified 09/12/18 13:59 morphine Allergy Dizziness Verified 09/12/18 13:59 Penicillins Allergy Diarrhea Verified 09/12/18 13:59 prednisone Allergy ANGER Verified 09/12/18 13:59 ISSUES tramadol AdvReac Itching Verified 09/12/18 13:59 narcotics Allergy See Comment Uncoded 09/12/18 13:59 opiods AdvReac See Comment Uncoded 09/12/18 13:59 PMH/Surg Hx/FS Hx/Imm Hx Endocrine History: Dyslipidemia Cardiovascular History: Hypertension GI/ History: Gastroesophageal Reflux Neurological History: Migraine - Surgical History Surgical History: Yes Surgery Procedure, Year, and Place: [facility]NG [facility]. 1992 LEFT KNEE ARTHOSCOPY [facility]. 2011 LEFT BREAST BIOPSY W/ [facility]. 08/20/13 RIGHT WRIST TENDON [facility]. FATTY TISSUE REMOVED FROM UPPER RIGHT ARM - Family History Known Family History: Positive: Hypertension - Social History Occupation: Disabled Lives: With Family Alcohol Use: None Alcohol Amount: Recovering alcoholic Substance Use Type: Excessive Caffeine Substance Use Comment - Amount & Last Used: hx prescribed drug, in outpatient treatment Smoking Status (MU): Light Every Day Tobacco Smoker Type: Cigarettes Amount Used/How Often: 1/2ppd Length of Time of Smoking/Using Tobacco: 3-4 YRS Have You Smoked in the Last Year: Yes When Did the Patient Quit Smoking/Using Tobacco: august 2014 Household Exposure Type: Cigarettes Review of Systems All Other Systems Reviewed And Are Negative: Yes Constitutional: Negative: Fever, Chills Eyes: Negative: Drainage, Eye Redness ENT: Positive: Sore Throat, Ear Ache, Nasal Discharge, Sinus Congestion, Sinus Pain/Tenderness Respiratory: Positive: Shortness Of Breath, Cough, Other - Wheezing Cardiovascular: Negative: Palpitations, Chest Pain Gastrointestinal: Negative: Abdominal Pain, Vomiting, Diarrhea, Nausea Genitourinary: Positive: Negative Musculoskeletal: Positive: Negative Neurological: Positive: Negative Is Patient Immunocompromised?: No Physical Exam - Summary Physical Exam Summary: GENERAL APPEARANCE: Alert and cooperative obese adult female who appears to be in no acute distress. EYES: Conjunctiva clear. No drainage. EARS: External auditory canals and tympanic membranes clear, hearing grossly intact. NOSE: No nasal discharge. Moderate nasal congestion with mucosal erythema and edema. Maxillary sinus tenderness. THROAT: Pharyngeal cobblestoning. No tonsilar inflammation, swelling, exudate, or lesions. Uvula midline. NECK: Neck supple, non-tender without lymphadenopathy. CARDIAC: Normal S1 and S2. No S3, S4 or murmurs. Rhythm is regular. There is no peripheral edema, cyanosis or pallor. Extremities are warm and well perfused. Capillary refill is less than 2 seconds. Peripheral pulses intact. LUNGS: Diminished breath sounds with scattered diffuse wheezes. Non-productive, bronchspastic cough. ABDOMEN: Positive bowel sounds. Soft, nondistended, nontender. No guarding or rebound. No masses or hepatosplenomegally. MUSKULOSKELETAL: ROM intact to all extremities. No joint erythema or tenderness. Normal muscular development. Normal gait. SKIN: Skin normal color, texture and turgor with no lesions or eruptions. Triage Information Reviewed: Yes Vital Signs: Initial Vital Signs Temp 97.9 F 09/28/18 11:11 Pulse 75 09/28/18 11:11 Resp 16 09/28/18 11:11 BP 128/76 09/28/18 11:11 Pulse Ox 98 09/28/18 11:11 Vital Signs Reviewed: Yes Re-Evaluation - Re-Evaluation First Eval Re-Evaluation Time: 12:11 Change: Improved Comment: Patient states beathing and chest tightness much better after nebulizer treatment. Bilateral breath sounds clear with improved air exchange. No wheezes noted. Respiratory Course/Dx - Course Course Of Treatment: 53-year-old female presents with 10-14 day history of nasal congestion, sinus pressure, sore throat, bilateral ear fullness, dry nonproductive cough, chest tightness, and wheezing. States symptoms have progressively worsened over the last 3-4 days. Has history of reactive airway disease with upper respiratory infections in the past. States has been using her albuterol inhaler however thinks that it may be . Denies fever, chills, dysphagia, palpitations, diaphoresis, abdominal pain, nausea, vomiting, or diarrhea. Afebrile. Vital signs stable. Patient had moderate nasal congestion with mucosal erythema and edema, maxillary sinus tenderness, pharyngeal cobblestoning without tonsillar swelling or exudate, diminished bilateral breath sounds with mild diffuse wheezing, and a nonproductive, bronchospastic cough. She was given an albuterol nebulizer treatment with improvement in her symptoms. Considering the duration of her symptoms will treat her for an acute maxillary sinusitis and reactive airway disease. She is to start doxycycline 100 mg twice a day 7 days, use an albuterol inhaler 2 puffs every 4-6 hours as needed for shortness of breath or wheezing, Tessalon Perles 1 Every 8 hours as needed for cough, as well as symptomatic treatment. She is to follow-up with her primary care provider in 3-5 days if symptoms are not improving. Anticipatory guidance and warning symptoms were reviewed with the patient. Verbalizes understanding and agrees to plan of care. - Differential Dx/Diagnosis Differential Diagnosis/HQI/PQRI: Bronchitis, Exacerbation Of COPD, Lower Resp Infection, Sinusitis Provider Diagnosis: Acute maxillary sinusitis, Reactive airway disease that is not asthma Discharge - Sign-Out/Discharge Documenting (check all that apply): Patient Departure All imaging exams completed and their final reports reviewed: No Studies - Discharge Plan Condition: Stable Disposition: HOME Prescriptions: Albuterol HFA INHALER* [Ventolin HFA Inhaler*] 2 puff INH Q4H PRN #1 mdi PRN Reason: Shortness Of Breath Benzonatate CAP* [Tessalon 100 MG CAP*] 100 mg PO TID PRN #21 cap PRN Reason: Cough Doxycycline Hyclate 100 mg PO BID #14 tablet Patient Education Materials: Sinusitis (ED), Wheezing (ED) Referrals: Eddie Velarde MD [Primary Care Provider] - 3 Days Additional Instructions: Your history and exam are consistent with a sinus infection with some reactive airway disease (wheezing). Considering the duration of your symptoms we will treat you with an antibiotic. Take doxycycline 100 mg 1 tab twice a day for 7 days. Do not drink milk or eat milk products for at least 2 hours before or after taking this medication as the calcium may affect the absorption of the antibiotic. This medication will also make you more sensitive to the sunlight therefore you should avoid sun exposure or take appropriate precautions such as long sleeves, hat, and sunscreen if you need to be outdoors. Use the albuterol inhaler 2 puffs every 4-6 hours as needed for shortness of breath or wheezing. Use Tessalon Perles 1 capsule every 8 hours as needed for coughing. Drink plenty of fluids to avoid dehydration especially if you are running any fever. Use a saline rinse kit such as Neti Pot or NeilMed at least twice a day to help thin secretions and promote drainage of the sinuses. Take over the counter acetaminophen (Tylenol) or ibuprofen (Advil, Motrin) according to directions as needed for pain or fever. Follow up with your primary care provider in 3-5 days if symptoms persist. Seek immediate medical attention in the emergency room if you have fever greater than 100.5 F despite taking acetaminophen or ibuprofen, have chest pain , difficulty breathing, are unable to swallow, or have any worsening of symptoms. - Billing Disposition and Condition Condition: STABLE Disposition: Home - Attestation Statements Provider Attestation: Per institutional requirements, I have reviewed the chart, however, I was not consulted specifically or made aware of this patient by the midlevel provider. I did not personally evaluate, interact with , or disposition this patient.
[2018-09-28] MEDS: Albuterol 2.5 MG/3 ML NEB.SOL* (0.083%) INH ONE (11:54)
== END 2018-09-28 12:26 | disposition home or self-care (01) ==
LOC: UCCORT 10:51
DX: J01.00 Acute maxillary sinusitis, unspecified (principal); J45.909 Unspecified asthma, uncomplicated; I10 Essential (primary) hypertension; F17.210 Nicotine dependence, cigarettes, uncomplicated
CPT/HCPCS: 99212; G0463

== ENCOUNTER 2019-02-24 14:25 | Emergency (ER) | payer OTHER ==
[2019-02-24 14:53] VITALS: BP 148/85
--- NOTE | 2019-02-24 15:30 | UC ---
Throat Pain/Nasal Yandel HPI - HPI Summary HPI Summary: 53 year old female presents with 2 complaints: 1- sinus congestion/ pressure, headache, coughing green phelgm, b/l ear pressure x 4 days. + fatigue, + body aches. No prior symptoms, no chest pain. 2- foul smelling urine, + frequency, + urgency, + burning with urination x ~ 5 days. no flank pain. Patient states when she has UTIs often they do not show up on cultures. - History of Current Complaint Chief Complaint: UCGeneralIllness Stated Complaint: SINUS COMPLAINT Time Seen by Provider: 02/24/19 15:20 Hx Obtained From: Patient Hx Last Menstrual Period: none ?: No Onset/Duration: Sudden Onset, Lasting Days - 4-5 Severity: Severe Pain Intensity: 7 Pain Scale Used: 0-10 Numeric Cough: Productive - green phelgm Associated Signs & Symptoms: Positive: Sinus Discomfort, Nasal Discharge, Fever. Negative: Dysphagia, FB Sensation, Drooling, Wheezing, Hoarseness, Vomiting, Rash - Epiglottits Risk Factors Epiglottis Risk Factors: Negative - Allergies/Home Medications Allergies/Adverse Reactions: Allergies Allergy/AdvReac Type Severity Reaction Status Date / Time Opioids - Morphine Analogues Allergy Severe extreme Verified 02/24/19 14:49 disorientation, agressive Adhesive Tape Allergy Rash And Verified 02/24/19 14:49 Itching belimumab [From Benlysta] Allergy Difficulty Verified 02/24/19 14:49 Breathing celecoxib [From Celebrex] Allergy Rash Verified 02/24/19 14:49 codeine Allergy JITTERY, Verified 02/24/19 14:49 INSOMNIA iodine Allergy Rash And Verified 02/24/19 14:49 Itching lisinopril Allergy Coughing Verified 02/24/19 14:49 morphine Allergy Dizziness Verified 02/24/19 14:49 Penicillins Allergy Diarrhea Verified 02/24/19 14:49 prednisone Allergy ANGER Verified 02/24/19 14:49 ISSUES tramadol AdvReac Itching Verified 02/24/19 14:49 narcotics Allergy See Comment Uncoded 02/24/19 14:49 opiods AdvReac See Comment Uncoded 02/24/19 14:49 Home Medications: Home Medications Duloxetine HCl [Drizalma Sprinkle] 30 mg PO DAILY 02/24/19 [History Confirmed ] azaTHIOprine [Azathioprine] 3 tab PO DAILY 02/24/19 [History Confirmed 02/24/19] PMH/Surg Hx/FS Hx/Imm Hx Previously Healthy: Yes - Surgical History Surgical History: Yes Surgery Procedure, Year, and Place: 1992 LEFT KNEE ARTHOSCOPY [facility]. 2011 LEFT BREAST BIOPSY W/ [facility]. 08/20/13 RIGHT WRIST TENDON [facility]. FATTY TISSUE REMOVED FROM UPPER RIGHT ARM - Family History Known Family History: Positive: Hypertension - Social History Alcohol Use: None Alcohol Amount: Recovering alcoholic Substance Use Type: None Substance Use Comment - Amount & Last Used: hx prescribed drug, in outpatient treatment Smoking Status (MU): Light Every Day Tobacco Smoker Type: Cigarettes Amount Used/How Often: 1/2ppd Length of Time of Smoking/Using Tobacco: 3-4 YRS Have You Smoked in the Last Year: Yes When Did the Patient Quit Smoking/Using Tobacco: august 2014 Household Exposure Type: Cigarettes Review of Systems All Other Systems Reviewed And Are Negative: Yes Constitutional: Positive: Fever - unsure, Chills, Fatigue ENT: Positive: Sore Throat, Ear Ache, Nasal Discharge, Sinus Congestion, Sinus Pain/Tenderness Respiratory: Positive: Cough. Negative: Shortness Of Breath Cardiovascular: Negative: Palpitations, Chest Pain Gastrointestinal: Negative: Abdominal Pain, Vomiting, Diarrhea, Nausea Genitourinary: Positive: Dysuria, Frequency, Urgency. Negative: Hematuria, Vaginal/Penile Burning, Vaginal/Penile Itching, Ulceration/Lesion Neurological: Positive: Headache Is Patient Immunocompromised?: No Physical Exam Triage Information Reviewed: Yes Appearance: No Pain Distress, Well-Nourished, Ill-Appearing - moderate Vital Signs: Initial Vital Signs Temp 97.7 F 02/24/19 14:50 Pulse 78 02/24/19 14:50 Resp 18 02/24/19 14:50 BP 148/85 02/24/19 14:50 Pulse Ox 97 02/24/19 14:50 Vital Signs Reviewed: Yes Eyes: Positive: Conjunctiva Clear ENT: Positive: Hearing grossly normal, Pharyngeal erythema - minimal b/l, Nasal congestion, Nasal drainage, TMs normal, Sinus tenderness - b/l frontal, max, Uvula midline. Negative: TM bulging, TM dull, TM red, Tonsillar swelling, Tonsillar exudate Neck: Positive: Supple, No Lymphadenopathy, Tenderness @ - pre-auricular b/l. Negative: Nuchal Rigidity, Enlarged Nodes @ Respiratory: Positive: Chest non-tender, Lungs clear, Normal breath sounds, No respiratory distress, No accessory muscle use. Negative: Respiratory distress, Crackles, Rhonchi, Stridor, Wheezing Cardiovascular: Positive: RRR, No Murmur Psychological Exam: Normal Skin Exam: Normal Throat Pain/Nasal Course/Dx - Course Course Of Treatment: rapid flu-= negative - UA- negative, sent for cultures Sinusitis: - Antibitiocs as directed for sinus complaints, possible UTI - Cultures sent for UTI due to symptoms - Increase fluid intake - Increase rest - Over the counter medications as needed for symptoms, such as motrin for pain / fever - Return with worsening of symptoms, such as decreased urine output, flank pain , fever > 102, increased headache, neck pain - Differential Dx/Diagnosis Differential Diagnosis/HQI/PQRI: Peritonsillar Abscess, Pharyngitis, Sinusitis, URI Provider Diagnosis: Sinusitis Discharge ED - Sign-Out/Discharge Documenting (check all that apply): Patient Departure All imaging exams completed and their final reports reviewed: No Studies - Discharge Plan Condition: Good Disposition: HOME Prescriptions: ceFIXime [Cefixime] 400 mg PO DAILY #5 capsule Patient Education Materials: Sinusitis (ED), Urinary Urgency and Frequency (DC) Referrals: Eddie Velarde MD [Primary Care Provider] - Additional Instructions: - Antibitiocs as directed for sinus complaints, possible UTI - Cultures sent for UTI due to symptoms - Increase fluid intake - Increase rest - Over the counter medications as needed for symptoms, such as motrin for pain / fever - Return with worsening of symptoms, such as decreased urine output, flank pain , fever > 102, increased headache, neck pain - Billing Disposition and Condition Condition: GOOD Disposition: Home - Attestation Statements Provider Attestation: This patient was not seen by me I was available for consult Chart reviewed ROBBY
[2019-02-24 15:57] LABS: Influenza A Molecular NEGATIVE (Negative); Influenza B Molecular NEGATIVE (Negative)
== END 2019-02-24 16:16 | disposition home or self-care (01) ==
LOC: UCCORT 14:25
DX: J32.9 Chronic sinusitis, unspecified (principal); R35.0 Frequency of micturition; R39.15 Urgency of urination; R39.89 Other symptoms and signs involving the genitourinary system; F17.210 Nicotine dependence, cigarettes, uncomplicated; Z88.5 Allergy status to narcotic agent; Z88.8 Allergy status to other drugs, medicaments and biological substances; Z88.0 Allergy status to penicillin; Z91.09 Other allergy status, other than to drugs and biological substances; Z88.1 Allergy status to other antibiotic agents
CPT/HCPCS: 81003; 87086; 99212; G0463

== ENCOUNTER 2019-03-01 12:12 | Emergency (ER) | payer OTHER ==
[2019-03-01 14:39] VITALS: BP 127/69
--- NOTE | 2019-03-01 15:05 | UC ---
Respiratory Complaint HPI - HPI Summary HPI Summary: 53 yo female with 3 week hx of cough/sinus pressure and pain as well as wheezing ? fever + chills + headache no CP or SOB has vaginal d/c and dysuria - History of Current Complaint Chief Complaint: UCGeneralIllness Stated Complaint: SINUS COMPLAINT, COUGH Time Seen by Provider: 03/01/19 14:49 Hx Obtained From: Patient Hx Last Menstrual Period: none Onset/Duration: Gradual Onset, Lasting Weeks Timing: Constant Severity Initially: Mild Severity Currently: Severe Pain Intensity: 10 Pain Scale Used: 0-10 Numeric Character: Cough: Productive Aggravating Factors: Nothing Alleviating Factors: Nothing Associated Signs And Symptoms: Positive: Wheezing, Nasal Congestion, Hoarseness , Sinus Discomfort - Allergies/Home Medications Allergies/Adverse Reactions: Allergies Allergy/AdvReac Type Severity Reaction Status Date / Time Opioids - Morphine Analogues Allergy Severe extreme Verified 03/01/19 14:26 disorientation, agressive Adhesive Tape Allergy Rash And Verified 03/01/19 14:26 Itching belimumab [From Benlysta] Allergy Difficulty Verified 03/01/19 14:26 Breathing celecoxib [From Celebrex] Allergy Rash Verified 03/01/19 14:26 codeine Allergy JITTERY, Verified 03/01/19 14:26 INSOMNIA iodine Allergy Rash And Verified 03/01/19 14:26 Itching lisinopril Allergy Coughing Verified 03/01/19 14:26 morphine Allergy Dizziness Verified 03/01/19 14:26 Penicillins Allergy Diarrhea Verified 03/01/19 14:26 prednisone Allergy ANGER Verified 03/01/19 14:26 ISSUES tramadol AdvReac Itching Verified 03/01/19 14:26 narcotics Allergy See Comment Uncoded 03/01/19 14:26 opiods AdvReac See Comment Uncoded 03/01/19 14:26 Home Medications: Home Medications Rizatriptan Benzoate [Rizatriptan] 5 mg PO SEE INSTRUCTIONS 03/01/19 [History Confirmed 03/01/19] SUMAtriptan TAB* [Imitrex TAB*] 25 mg PO SEE INSTRUCTIONS 03/01/19 [History Confirmed 03/01/19] PMH/Surg Hx/FS Hx/Imm Hx Previously Healthy: Yes Psychological History: Depression - Surgical History Surgical History: Yes Surgery Procedure, Year, and Place: 1992 LEFT KNEE ARTHOSCOPY [facility] [place]. 2011 LEFT BREAST BIOPSY W/ [facility]. 08/20/13 RIGHT WRIST TENDON [facility]. FATTY TISSUE REMOVED FROM UPPER RIGHT ARM - Family History Known Family History: Positive: Hypertension - Social History Alcohol Use: None Alcohol Amount: Recovering alcoholic Substance Use Type: None Substance Use Comment - Amount & Last Used: hx prescribed drug, in outpatient treatment Smoking Status (MU): Light Every Day Tobacco Smoker Type: Cigarettes Amount Used/How Often: 4-5 per day Length of Time of Smoking/Using Tobacco: 3-4 YRS Have You Smoked in the Last Year: Yes When Did the Patient Quit Smoking/Using Tobacco: august 2014 Household Exposure Type: Cigarettes Review of Systems All Other Systems Reviewed And Are Negative: Yes Constitutional: Positive: Fever - ?, Chills, Fatigue Skin: Positive: Negative Eyes: Positive: Negative ENT: Positive: Sore Throat, Nasal Discharge, Sinus Congestion, Sinus Pain/ Tenderness Respiratory: Positive: Cough Cardiovascular: Positive: Negative Gastrointestinal: Positive: Negative Genitourinary: Positive: Dysuria, Frequency, Urgency, Vaginal/Penile Itching, Vaginal/Penile Discharge Motor: Positive: Negative Neurovascular: Positive: Negative Musculoskeletal: Positive: Negative Neurological: Positive: Headache Psychological: Positive: Negative Physical Exam Triage Information Reviewed: Yes Appearance: Well-Appearing, No Pain Distress, Well-Nourished Vital Signs: Initial Vital Signs Temp 98.7 F 03/01/19 14:21 Pulse 66 03/01/19 14:21 Resp 18 03/01/19 14:21 BP 127/69 03/01/19 14:21 Pulse Ox 97 03/01/19 14:21 Vital Signs Reviewed: Yes Eyes: Positive: Conjunctiva Clear ENT: Positive: Hearing grossly normal, Nasal congestion, Nasal drainage. Negative: Tonsillar swelling Dental Exam: Normal Neck: Positive: Supple, Nontender, No Lymphadenopathy Respiratory: Positive: Lungs clear, Normal breath sounds, No respiratory distress, No accessory muscle use Cardiovascular: Positive: RRR, No Murmur Abdomen Description: Positive: Nontender Bowel Sounds: Positive: Present Musculoskeletal: Positive: ROM Intact, No Edema Neurological: Positive: Alert Psychological Exam: Normal Skin Exam: Normal Diagnostics - Radiology No standard instances Radiology Interpretation Completed By: Radiologist Summary of Radiographic Findings: NAD Respiratory Course/Dx - Differential Dx/Diagnosis Provider Diagnosis: Acute bronchitis, Acute sinusitis, Vaginitis Discharge ED - Sign-Out/Discharge Documenting (check all that apply): Patient Departure All imaging exams completed and their final reports reviewed: Yes - Discharge Plan Condition: Stable Disposition: HOME Prescriptions: DOXYcycline CAP(*) [DOXYcycline 100MG CAP(*)] 100 mg PO BID #14 cap Fluticasone NASAL SPRAY 50MCG* [Flonase NASAL SPRAY 50MCG*] 2 spray BOTH NARES BID #1 btl Patient Education Materials: Acute Bronchitis (ED), Sinusitis (ED), Vaginitis ( ED) Referrals: Eddie Velarde MD [Primary Care Provider] - 1 Week Additional Instructions: Vaginal swab results pending recheck for new or worsening symptoms recheck in one week if not better - Billing Disposition and Condition Condition: STABLE Disposition: Home
[2019-03-01] MEDS ORDERED: Albuterol HFA INHALER* 8 gm MDI INH ONE (15:30)
== END 2019-03-01 15:47 | disposition home or self-care (01) ==
LOC: UCCORT 12:12
DX: J40 Bronchitis, not specified as acute or chronic (principal); J32.9 Chronic sinusitis, unspecified; F17.210 Nicotine dependence, cigarettes, uncomplicated; N76.0 Acute vaginitis; Z88.5 Allergy status to narcotic agent; Z88.0 Allergy status to penicillin; Z88.8 Allergy status to other drugs, medicaments and biological substances; Z91.09 Other allergy status, other than to drugs and biological substances
CPT/HCPCS: 71046; 81003; 87480; 87510; 87660; 99212; A9270-GY; G0463